=== PATIENT | female | born 1980 | race Caucasian/White ===

== ENCOUNTER 2017-01-09 15:09 | Emergency (ER) | payer OTHER ==
--- NOTE | ~2017-01-09 | CR173 ---
[facility]. [facility] A Service of [facility] RADIOLOGY TEXT RESULTS PATIENT: GERARD MARTINEZ LOCATION: SED : 82 UNIT #: [id number] AGE: [address]: Keke Rojas APRN SEX: F ORDER DR: [id number] [address] [address] [id number] MR#: [id number] #: [id number] NAME: GERARD MARTINEZ. : 1980 SEX: F STUDY DATE/TIME: 01/09/2017 16:18 UNIT: SED ROOM: STUDY DESCRIPTION: CR Knee 3 Views Rt Attending Physician: Keke Rojas A.P.R.N. Ordering Physician: Keke Rodríguez A.P.R.N. Primary Care Physician: Cindy Martinez M.D. MEDICAL IMAGING REPORT This report is preliminary unless electronic signature is present. EXAM Right knee, 01/09/2017. HISTORY 36-year-old female with right knee pain for 2 weeks. History of fall today. COMPARISON None FINDINGS Three views of the right knee demonstrate a questionable nondisplaced lucency through the lateral/central aspect of the patella, seen only on the sunrise view. A nondisplaced patellar fracture is not completely excluded. No other displaced fracture or dislocation. No joint effusion. Joint spaces are normally maintained. IMPRESSION Subtle linear lucency extending through the central/lateral aspect of the patella, seen only on the sunrise projection. A nondisplaced patellar fracture is not completely excluded. Correlation for point tenderness in this location. Remainder of the examination is unremarkable. Dictated by... Stiven Song M.D. THIS IS AN ELECTRONICALLY VERIFIED REPORT Stiven Song M.D. at 01/10/2017 8:07 AM DOUG/marty [facility] A Service [facility] RADIOLOGY TEXT RESULTS PATIENT: GERARD MARTINEZ LOCATION: SED : [birth year] UNIT #: [id number] AGE: [address]: Keke Rojas APRN SEX: F ORDER DR: TD: 01/10/2017 02:28 JOB #: [id number] MEDICAL IMAGING REPORT Page 1 of 1
[~2017-01-09 15:09] MED LIST: METHADOSE10 MG/ML PO; PROZAC40 MG PO; VOLTAREN75 MG PO
[2017-01-09] MEDS ORDERED: BACLOFEN10 MG (15:21)
[2017-01-09] MEDS ORDERED: METHADONE (15:21)
[2017-01-09] MEDS ORDERED: SUDAFED (15:21)
== END 2017-01-09 18:26 | disposition home or self-care (01) ==
LOC: SED 15:09
DX: S82.001A Unspecified fracture of right patella, initial encounter for closed fracture (principal); W06.XXXA Fall from bed, initial encounter; Y92.009 Unspecified place in unspecified non-institutional (private) residence as the place of occurrence of the external cause; F17.210 Nicotine dependence, cigarettes, uncomplicated; F41.9 Anxiety disorder, unspecified; F32.9 Major depressive disorder, single episode, unspecified
CPT/HCPCS: 29505; 73562; 99283